=== PATIENT | male | born 1975 | race African-American/Black ===

== ENCOUNTER 2019-11-08 16:08 | Emergency (ER) | payer OTHER ==
--- NOTE | 2019-11-08 16:34 | ED ---
Substance Abuse/Use - HPI Summary HPI Summary: 43-year-old -[place] male with no significant past medical history presents to the emergency department from [address] [place] [address] facility with a chief complaint of K2 injection per half-way, EMS. Patient states he feels well at this time and has no complaints. Patient states "I'm not an amateur with this shit and I wanna go." Patient states at approximately 1415 this date he took "one rip" of K2 and never felt high. EMS gave the patient 2 mg of IM Narcan en route. Patient is alert and oriented 3. Patient is in no acute distress he denies lightheadedness, history of seizures, altered mental status, changes in vision, headache, agitation or tremor. Patient denies other recreational drug use or alcohol use with evening. - History Of Current Complaint Chief Complaint: EDSubstanceAbuse Stated Complaint: OVERDOSE PER EMS Time Seen by Provider: 11/08/19 16:33 Hx Obtained From: Patient, Other: - [facility] guards Onset/Duration of Drug/ETOH Abuse: Hours Ingestion History: Type/Name Of Drug - K2 Timing Of Abuse: Intermittent Severity Initially: Mild Severity Currently: Mild Associated Signs And Symptoms: Negative PMH/Surg Hx/FS Hx/Imm Hx Infectious Disease History: No Infectious Disease History: Denies: Traveled Outside the [place] in Last 30 Days Review of Systems Constitutional: Negative Eyes: Negative ENT: Negative Cardiovascular: Negative Respiratory: Negative Gastrointestinal: Negative Genitourinary: Negative Musculoskeletal: Negative Skin: Negative Neurological: Negative Psychological: Normal All Other Systems Reviewed And Are Negative: Yes Physical Exam - Summary Physical Exam Summary: Patient is in no acute distress. Patient is alert and oriented 3. Patient appears asymptomatic at this time. Only physical exam finding is mild biliary dilation bilaterally. However pupils respond appropriately to light. ISH LINDSAYMI. Triage Information Reviewed: Yes Vital Signs On Initial Exam: Initial Vitals Temp Pulse Resp BP Pulse Ox 97.6 F 87 16 142/75 99 11/08/19 16:17 11/08/19 16:17 11/08/19 16:17 11/08/19 16:17 11/08/19 16:17 Vital Signs Reviewed: Yes Appearance: Positive: Well-Appearing, No Pain Distress, Well-Nourished Skin: Positive: Warm, Skin Color Reflects Adequate Perfusion Eyes: Positive: EOMI, TESSA ENT: Positive: Normal ENT inspection, Hearing grossly normal Respiratory/Lung Sounds: Positive: Clear to Auscultation, Breath Sounds Present Cardiovascular: Positive: RRR, S1, S2 Abdomen Description: Positive: Nontender, No Organomegaly Bowel Sounds: Positive: Present Musculoskeletal: Positive: Strength/ROM Intact Neurological: Positive: Sensory/Motor Intact, Alert, Oriented to Person Place, Time, Normal Gait, Facial Symmetry, Speech Normal. Negative: Cerebellar Dysfunction, Slurred Speech Psychiatric: Positive: Normal, Affect/Mood Appropriate AVPU Assessment: Alert Procedures - Sedation Patient Received Moderate/Deep Sedation with Procedure: No Diagnostics - Vital Signs Vital Signs Temp Pulse Resp BP Pulse Ox 11/08/19 16:17 97.6 F 87 16 142/75 99 - Laboratory Lab Statement: Any lab studies that have been ordered have been reviewed, and results considered in the medical decision making process. Course/Dx - Course Course Of Treatment: Patient was evaluated in emergency department for substance abuse. Patient's exam and his vitals are stable and he is afebrile. Physical exam is normal with no neurological deficits or signs of lethargy. It appears patient did not sustain any significant sequela from substance use. Patient was discharged with observation and is to follow-up with [facility] facility medical staff in 1 day for further evaluation and management. - Diagnoses Differential Diagnosis/HQI/PQRI: Positive: Drug Abuse, Metabolic Disorder Provider Diagnoses: Substance abuse Discharge ED - Sign-Out/Discharge Documenting (check all that apply): Patient Departure - Discharge Plan Condition: Stable Disposition: HOME Patient Education Materials: Polysubstance Abuse (ED) Referrals: Rima Yanez NP [Primary Care Provider] - 2 Days Additional Instructions: If you develop symptoms such as tremor, lethargy, changes in vision, seizure please return to the emergency department immediately. Please follow-up with a medical professional in one to two days for further evaluation and management. Please return to the emergency department immediately if you develop any new or worsening symptoms. - Billing Disposition and Condition Condition: STABLE Disposition: Home
[2019-11-08 17:13] VITALS: BP 155/101
== END 2019-11-08 17:13 | disposition home or self-care (01) ==
LOC: ED 16:08
DX: F19.10 Other psychoactive substance abuse, uncomplicated (principal)
CPT/HCPCS: 99282